=== PATIENT | female | born 1985 | race Caucasian/White ===

== ENCOUNTER 2021-06-21 10:52 | Emergency (ER) | payer MEDICAID ==
[~2021-06-21] VITALS: Ht 170.2 cm; Wt 63.9 kg
[2021-06-21 11:28] VITALS: BP 123/81
[2021-06-21 12:08] LABS: CLARITY,URINE CLEAR (Clear); COLOR,URINE YELLOW (Yellow); GLUCOSE, URINE NEGATIVE (Neg); KETONES,URINE NEGATIVE (Neg); LEUKOCYTE ESTERASE ,URINE NEGATIVE (Neg); NITRITES, URINE NEGATIVE (Neg); OCCULT BLOOD,URINE NEGATIVE (Neg); PH,URINE 5.5 (4.8-8.0); PROTEIN,URINE NEGATIVE (Neg); UROBILINOGEN,URINE 0.2 E.U/dL (0.2-1.0)
[2021-06-21 12:09] LABS: UA COLLECTION TYPE CLN CATCH MIDSTREAM
[2021-06-21 12:10] LABS: URINE HCG NEGATIVE (NEG)
[2021-06-21] MEDS ORDERED: CefTRIAXone 1000mg IM Kit (w/lidocaine diluent) IM STA (12:11)
[2021-06-21] MEDS ORDERED: metroNIDAZOLE 500mg tablet PO ONE (12:15)
[2021-06-21] MEDS ORDERED: azithromycin 250mg tablet PO ONE (12:15)
[2021-06-21] MEDS ORDERED: fluconazole 150mg tablet PO ONE (12:15)
== END 2021-06-21 13:12 | disposition home or self-care (01) ==
LOC: ER 10:53
DX: A64 Unspecified sexually transmitted disease (principal)
CPT/HCPCS: 36415; 81003; 81025; 87491; 87591; 96372; 99284; J0696; Q0112; J3490

== ENCOUNTER 2024-03-03 07:56 | Emergency (ER) | payer MEDICAID ==
[~2024-03-03] VITALS: Ht 167.6 cm; Wt 72.7 kg
[2024-03-03 07:57] VITALS: BP 150/118; PULSE 133; RESP 20; O2SAT 99
[2024-03-03 08:17] VITALS: TEMP 99.4
[2024-03-03 14:10] LABS: BILIRUBIN,URINE NEGATIVE (Neg); CLARITY,URINE CLEAR (Clear); COLOR,URINE YELLOW (Yellow); GLUCOSE, URINE NEGATIVE (Neg); KETONES,URINE 15 mg/dl (Neg); LEUKOCYTE ESTERASE ,URINE NEGATIVE (Neg); NITRITES, URINE NEGATIVE (Neg); OCCULT BLOOD,URINE TRACE-INTACT (Neg); PROTEIN,URINE NEGATIVE (Neg); UROBILINOGEN,URINE 0.2 E.U/dL (0.2-1.0)
[2024-03-03 14:21] LABS: UA COLLECTION TYPE CLN CATCH MIDSTREAM
[2024-03-03 14:23] LABS: BACTERIA,URINE FEW /HPF (Neg); MUCUS STRANDS MODERATE /LPF (Neg); SQUAMOUS EPITHELIAL CELL,UR FEW /LPF (FEW); WBC,URINE 0-4 /HPF (0-4)
== END 2024-03-03 08:37 | disposition left against medical advice (07) ==
LOC: ER 07:57
DX: R11.10 Vomiting, unspecified (principal); R10.9 Unspecified abdominal pain; Z53.21 Procedure and treatment not carried out due to patient leaving prior to being seen by health care provider
CPT/HCPCS: 81001; 99281

== ENCOUNTER 2024-03-03 12:33 | Emergency (ER) | payer MEDICAID ==
[~2024-03-03] VITALS: Ht 170.2 cm; Wt 68.0 kg
[2024-03-03 12:51] VITALS: TEMP 98.1
[2024-03-03] MEDS: buprenorphine/naloxone 8MG-2MG SUBlingual film SL STA ×2 (13:28→14:22)
[2024-03-03 13:34] VITALS: BP 114/71; PULSE 97; O2SAT 95
[2024-03-03 13:38] VITALS: RESP 30
[2024-03-03 13:50] LABS: BASOPHILS % (AUTO) 0 % (0-1); EOSINOPHILS % (AUTO) 0 % (0-6); HEMATOCRIT 48.4 % (35.0-45.0); HEMOGLOBIN 16.4 g/dl (12.0-16.0); LYMPHOCYTES # (AUTO) 0.5 X10'3 (1.1-4.8); LYMPHOCYTES % (AUTO) 3.8 % (21-51); MEAN CORPUSCULAR HEMOGLOBIN 29.6 PG (27.0-31.0); MEAN CORPUSCULAR HGB CONC 33.9 g/dL (33.0-36.5); MEAN CORPUSCULAR VOLUME 87.3 FL (78-98); MEAN PLATELET VOLUME 6.8 FL (7.4-10.4); MONOCYTES # (AUTO) 0.6 X10'3 (0-0.9); MONOCYTES % (AUTO) 5.3 % (2-12); NEUTROPHILS # (AUTO) 10.9 X10'3 (1.8-7.7); NEUTROPHILS % (AUTO) 90.9 % (42-75); PLATELET COUNT 253 X10'3 (140-440); RED BLOOD COUNT 5.54 X10'6 (4.20-5.60); RED CELL DISTRIBUTION WIDTH 13.4 % (11.5-14.5)
[2024-03-03 14:08] LABS: ALBUMIN 3.5 G/DL (3.4-5.0); ANION GAP 12 (8-16); BLOOD UREA NITROGEN 12 MG/DL (7-18); BUN/CREATININE RATIO 15.2 (10.0-20.0); CALCIUM 9.4 MG/DL (8.5-10.1); CHLORIDE 97 MMOL/L (99-107); CREATININE 0.79 MG/DL (0.40-0.90); GLUCOSE 138 MG/DL (70-104); PRO BRAIN NATRIURETIC PEPTIDE 144 PG/ML (0-125); SODIUM 135 MMOL/L (135-145); TOTAL CARBON DIOXIDE 25.6 MMOL/L (24-32); eCRCL 96 ML/MIN; eGFR 82 ML/MIN
[2024-03-03 14:09] LABS: POTASSIUM 3.7 MMOL/L (3.5-5.1)
[2024-03-03] MEDS ORDERED: buprenorphine/naloxone 8MG-2MG SUBlingual film SL STA (14:14)
== END 2024-03-03 14:56 | disposition left against medical advice (07) ==
LOC: ER 12:34
DX: F13.239 Sedative, hypnotic or anxiolytic dependence with withdrawal, unspecified (principal); T42.71XA Poisoning by unspecified antiepileptic and sedative-hypnotic drugs, accidental (unintentional), initial encounter; K52.1 Toxic gastroenteritis and colitis; Z59.00 Homelessness unspecified; Y92.89 Other specified places as the place of occurrence of the external cause
CPT/HCPCS: 36415; 71045; 80048; 83880; 84484; 85025; 93005; 99285; C1758